=== PATIENT | female | born 1990 ===

== ENCOUNTER 2018-01-23 22:55 | Emergency (ER) | payer BC ==
[2018-01-23 23:14] VITALS: RESP 16
[2018-01-24 00:17] LABS: BASO % 0.2 % (0.0-2.0); EOS # 0.1 K/uL (0.0-0.7); EOS % 0.6 % (0.0-4.0); HEMOGLOBIN 12.2 g/dL (12.0-16.0); LYMPH # 3.6 K/uL (1.0-4.3); LYMPH % 21.5 % (20.0-40.0); MEAN CELL VOLUME 89.8 fl (81.0-99.0); MEAN CORPUSCULAR HEMOGLOBIN 29.5 pg (27.0-31.0); MEAN CORPUSCULAR HGB CONC 32.9 g/dL (33.0-37.0); MEAN PLATELET VOLUME 8.6 fl (7.2-11.7); MONO # 1.1 K/uL (0.0-0.8); MONO % 6.6 % (0.0-10.0); NEUT # 11.9 K/uL (1.8-7.0); NEUT % 71.1 % (50.0-75.0); RBC 4.13 Mil/uL (3.80-5.20); RED CELL DISTRIBUTION WIDTH 13.7 % (11.5-14.5); WHITE BLOOD COUNT 16.8 K/uL (4.8-10.8)
[2018-01-24 00:21] LABS: SQUAMOUS EPITHIAL 1 /hpf (0-5); URINE BACTERIA RARE (<OCC); URINE BILIRUBIN NEGATIVE (NEGATIVE); URINE BLOOD NEGATIVE (NEGATIVE); URINE CLARITY CLEAR (Clear); URINE COLOR STRAW (YELLOW); URINE GLUCOSE (UA) NEG (Normal); URINE HYALINE CAST 0-2 /hpf (0-2); URINE LEUKOCYTE ESTERASE NEG Leu/uL (Negative); URINE PROTEIN NEGATIVE (NEGATIVE); URINE UROBILINOGEN 0.2-1.0 mg/dL (0.2-1.0)
[2018-01-24 00:26] LABS: BLOOD UREA NITROGEN 7 mg/dl (7-17); CALCIUM 9.2 mg/dL (8.4-10.2); GFR AFRICAN-AMERICAN > 60; GFR NON-AFRICAN AMERICAN > 60
--- NOTE | 2018-01-24 00:47 | ED PDOC ---
HPI: Female Pain Time Seen by Provider: 01/23/18 23:21 Chief Complaint (Nursing): Female Genitourinary Chief Complaint (Provider): Female Genitourinary History Per: Patient History/Exam Limitations: no limitations Onset/Duration Of Symptoms: Hrs Associated Symptoms: denies: Fever, Nausea, Vomiting Additional Complaint(s): 27 years old, 11 weeks female with presents to the ED for evaluation of 2 episodes of brown vaginal spotting onset earlier today. Patient reports mild discomfort to the suprapubic area. She states she has care and has had prior US at 8 weeks which showed +IUP. Patient reports also being diagnosed with UTI 1 week ago and was put on Keflex, which she completed. Patient denies any actual vaginal bleeding, vaginal discharge, nausea/vomiting, fever, urinary symptoms, or any more spotting since onset. Has no other complaints. PMD: DR. HARRY SMART Past Medical History Reviewed: Historical Data, Nursing Documentation, Vital Signs Vital Signs: Last Vital Signs Temp 97.7 F 01/23/18 23:10 Pulse 83 01/23/18 23:10 Resp 16 01/23/18 23:10 BP 125/82 01/23/18 23:10 Pulse Ox 100 01/23/18 23:10 - Medical History PMH: No Chronic Diseases - Surgical History Surgical History: No Surg Hx - Family History Family History: States: Unknown Family Hx - Social History Current smoker - smoking cessation education provided: No Alcohol: None Drugs: Denies - Allergies Allergies/Adverse Reactions: Allergies Allergy/AdvReac Type Severity Reaction Status Date / Time No Known Allergies Allergy Verified 01/23/18 23:40 Review of Systems ROS Statement: Except As Marked, All Systems Reviewed And Found Negative Constitutional: Negative for: Fever Gastrointestinal: Negative for: Nausea, Vomiting Genitourinary Female: Negative for: Vaginal Discharge, Vaginal Bleeding Physical Exam - Physical Exam Comments: GENERAL APPEARANCE: Patient is awake, alert, oriented x 3, in mild painful distress. SKIN: Warm, dry; (-) cyanosis. EYES: (-) conjunctival pallor, (-) scleral icterus. ENMT: Mucous membranes (+) moist. NECK: (-) tenderness, (-) stiffness, (-) lymphadenopathy. CHEST AND RESPIRATORY: (-) rales, (-) rhonchi, (-) wheezes; breath sounds equal bilaterally. HEART AND CARDIOVASCULAR: (-) irregularity; (-) murmur, (-) gallop. ABDOMEN AND GI: (-) distention. Bowel sounds active; (+) mild tenderness to suprapubic area, (-) guarding, (-) rebound, (-) palpable masses, (-) CVA tenderness. EXTREMITIES: (-) deformity, (-) edema, (+) distal pulses. NEURO AND PSYCH: Mental status as above; (-) focal findings. - Laboratory Results Result Diagrams: 01/24/18 00:12 01/24/18 00:12 - ECG O2 Sat by Pulse Oximetry: 100 (RA) Pulse Ox Interpretation: Normal Medical Decision Making Medical Decision Making: Time: 2355 Initial impression: rule out UTI, consider threaten miscarriage Initial plan: --BBK Type and Screen --BMP --CBC --Urine Culture --Urinalysis Time: 29 --US not available at this time --Patient offered stay in ED for further observation and US in the AM, which can be performed once available as of 7 am --Patient, however, denies any spotting here in the ED and prefers not staying for ER observation, she is declining further observation --She states she will return to ER if spotting occurs --Labs reviewed, UA (-), beta quant 78,399, type & screen B+. Labs d/w the patient. --On re-evaluation, patient is resting comfortably in bed, in no acute distress , reports no abdominal pain, vaginal spotting or bleeding. --Patient is comfortable going home and instructed to return to ER in the morning if symptoms occur or if she changes her mind wants an US regardless --Otherwise was instructed to follow up with her OB in 1-2 days without fail. Scribe Attestation: Documented by Anastasiia Gonzalez, acting as a scribe for Rosalina Ferro PA-C. Provider Scribe Attestation: All medical record entries made by the Scribe were at my direction and personally dictated by me. I have reviewed the chart and agree that the record accurately reflects my personal performance of the history, physical exam, medical decision making, and the department course for this patient. I have also personally directed, reviewed, and agree with the discharge instructions and disposition. Disposition - Clinical Impression Clinical Impression: Vaginal spotting - Patient ED Disposition Is Patient to be Admitted: No Counseled Patient/Family Regarding: Studies Performed, Diagnosis, Need For Followup - Disposition Disposition: Routine/Home Disposition Time: 01:00 Condition: STABLE Additional Instructions: Thank you for letting us take care of you today. You were treated for vaginal spotting, 11 weeks . The emergency medical care you received today was directed at your acute symptoms. Return to the Emergency Department if your symptoms worsen, do not improve, or if you have any other problems. Please contact your OB doctor in 2 days for re-evaluation and follow up. Bring any paperwork you were given at discharge with you along with any medications you are taking to your follow up visit. Our treatment cannot replace ongoing medical care by a primary care provider (PCP) outside of the emergency department. Thank you for allowing the [facility] team to be part of your care today. 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
[2018-01-24 03:09] VITALS: BP 110/72; PULSE 69; TEMP 98.4
[2018-01-24 04:18] VITALS: O2SAT 100
== END 2018-01-24 01:32 | disposition home or self-care (01) ==
LOC: H.ER 22:55
DX: O26.859 Spotting complicating pregnancy, unspecified trimester (principal)

== ENCOUNTER 2018-01-24 16:42 | Emergency (ER) | payer BC ==
[2018-01-24 16:51] VITALS: O2SAT 100
[2018-01-24 18:18] LABS: BASO % 0.2 % (0.0-2.0); EOS # 0.1 K/uL (0.0-0.7); EOS % 0.5 % (0.0-4.0); HEMOGLOBIN 12.5 g/dL (12.0-16.0); LYMPH # 2.7 K/uL (1.0-4.3); LYMPH % 20.7 % (20.0-40.0); MEAN CORPUSCULAR HEMOGLOBIN 29.7 pg (27.0-31.0); MEAN CORPUSCULAR HGB CONC 33.3 g/dL (33.0-37.0); MEAN PLATELET VOLUME 8.5 fl (7.2-11.7); MONO # 0.8 K/uL (0.0-0.8); MONO % 6.1 % (0.0-10.0); NEUT # 9.3 K/uL (1.8-7.0); NEUT % 72.5 % (50.0-75.0); RBC 4.23 Mil/uL (3.80-5.20); RED CELL DISTRIBUTION WIDTH 13.5 % (11.5-14.5); WHITE BLOOD COUNT 12.9 K/uL (4.8-10.8)
--- NOTE | 2018-01-24 18:29 | US ---
PROCEDURE: OB Pelvic Ultrasound HISTORY: bleeding in preg LMP: 11/04/2017 COMPARISON: None available. FINDINGS: UTERUS: Gestational sac: Single intrauterine gestation. Measures 4.9 cm compatible with estimated gestational age of 10 weeks, 4 days. Yolk sac: Not visualized. pole: [place]-rump length measures 4.5 cm compatible with estimated gestational age of 11 weeks, 2 days. Heart rate: 158 bpm. age (Ultrasound estimated): 11 weeks, 0 days Jyoti-gestational hemorrhage: None. Date of delivery (Ultrasound estimated) : 08/15/2018 CERVIX: Measures 4.8 cm. Long and closed. No cervical abnormality seen. RIGHT OVARY: Measures 2.4 x 1.5 x 2.4 cm. No mass lesion. Normal flow. LEFT OVARY: Measures 3.0 x 2.3 x 3.5 cm. Cyst measuring 1.8 x 1.5 x 1 8 cm. Normal flow. FREE FLUID: None. OTHER FINDINGS: None. IMPRESSION: Single live intrauterine gestation with average ultrasound age of 11 weeks, 0 days. heart rate 158 beats per minute. Cervix long and closed.
--- NOTE | 2018-01-24 19:08 | ED PDOC ---
HPI: Female Pain Time Seen by Provider: 01/24/18 17:24 Chief Complaint (Nursing): Female Genitourinary Chief Complaint (Provider): Vaginal spotting History Per: Patient History/Exam Limitations: no limitations Onset/Duration Of Symptoms: Days (x2) Current Symptoms Are (Timing): Still Present Additional Complaint(s): 27 year old female, 11 weeks , , presents to the ED for evaluation of vaginal spotting onset yesterday night associated with mild cramping lower abdominal pain. Patient was seen here in ED yesterday night, but was discharged because she did not want to wait until 7:00 for an ultrasound. Worsening pain prompted her visit today, and she denies taking any pain medication before arrival. Additionally, patient notes she received care and that she had an ultrasound at 8 weeks that confirmed an IUP. As of two weeks ago, patient also notes she developed a UTI, which has resolved with a course of Keflex as shown by her urinalysis yesterday. Also from yesterday's results, she said her type and screen came back as B positive. Otherwise: (-) nausea, (-) vomiting, (-) urinary symptoms, (-) chest pain, (-) shortness of breath, (-) back pain. LNMP: 11/04/17 PMD: Emory German Past Medical History Reviewed: Historical Data, Nursing Documentation, Vital Signs Vital Signs: Last Vital Signs Temp 97.6 F 01/24/18 16:50 Pulse 90 01/24/18 16:50 Resp 19 01/24/18 16:50 BP 125/51 L 01/24/18 16:50 Pulse Ox 100 01/24/18 16:50 - Medical History PMH: No Chronic Diseases - Surgical History Surgical History: No Surg Hx - Family History Family History: States: Unknown Family Hx - Social History Current smoker - smoking cessation education provided: No Alcohol: None Drugs: Denies - Allergies Allergies/Adverse Reactions: Allergies Allergy/AdvReac Type Severity Reaction Status Date / Time No Known Allergies Allergy Verified 01/23/18 23:40 Review of Systems ROS Statement: Except As Marked, All Systems Reviewed And Found Negative Cardiovascular: Negative for: Chest Pain Respiratory: Negative for: Shortness of Breath Gastrointestinal: Positive for: Abdominal Pain (mild lower, described as cramping). Negative for: Nausea, Vomiting Genitourinary Female: Positive for: Vaginal Bleeding (spotting). Negative for: Dysuria, Frequency, Incontinence Musculoskeletal: Negative for: Back Pain Physical Exam - Reviewed Nursing Documentation Reviewed: Yes Vital Signs Reviewed: Yes - Physical Exam Comments: GENERAL APPEARANCE: Patient is awake, alert, oriented x 3, in no acute distress. Resting comfortably, on cell phone. SKIN: Warm, dry; (-) cyanosis. EYES: (-) conjunctival pallor, (-) scleral icterus. ENMT: Mucous membranes are moist. NECK: Supple, FROM (-) tenderness, (-) stiffness, (-) lymphadenopathy. CHEST AND RESPIRATORY: (-) rales, (-) rhonchi, (-) wheezes; breath sounds equal bilaterally. Speaking in full sentences. HEART AND CARDIOVASCULAR: (-) irregularity; (-) murmur, (-) gallop. ABDOMEN AND GI: (-) distention. Bowel sounds active x4; mild tenderness to lower abdomen. (-) guarding, (-) rebound, (-) palpable masses, (-) CVA tenderness EXTREMITIES: (-) deformity, (-) edema, (+) distal pulses. NEURO AND PSYCH: Mental status as above; (-) focal findings. Gait steady, speech clear. (-) facial asymmetry (-) aphasia - Laboratory Results Result Diagrams: 01/24/18 18:14 - ECG O2 Sat by Pulse Oximetry: 100 (RA) Pulse Ox Interpretation: Normal Medical Decision Making Medical Decision Making: Initial Impression: abdominal pain and vaginal bleeding during 1st trimester Time: 17:27 Initial Plan: --Beta-HCG, quantitative --CBC with differential --Tylenol 650mg PO --Transvag US 18:28 Transvag US FINDINGS: UTERUS: Gestational sac: Single intrauterine gestation. Measures 4.9 cm compatible with estimated gestational age of 10 weeks, 4 days. Yolk sac: Not visualized. pole: [place]-rump length measures 4.5 cm compatible with estimated gestational age of 11 weeks, 2 days. Heart rate: 158 bpm. age (Ultrasound estimated): 11 weeks, 0 days Jyoti-gestational hemorrhage: None. Date of delivery (Ultrasound estimated) : 08/15/2018 CERVIX: Measures 4.8 cm. Long and closed. No cervical abnormality seen. RIGHT OVARY: Measures 2.4 x 1.5 x 2.4 cm. No mass lesion. Normal flow. LEFT OVARY: Measures 3.0 x 2.3 x 3.5 cm. Cyst measuring 1.8 x 1.5 x 1 8 cm. Normal flow. FREE FLUID: None. OTHER FINDINGS: None. IMPRESSION: Single live intrauterine gestation with average ultrasound age of 11 weeks, 0 days. heart rate 158 beats per minute. Cervix long and closed. 192 Labs reviewed. H&H stable. On re-evaluation, patient reports improvement of symptoms. On exam, patient remains AAOx3, in no acute distress. Lungs clear to auscultation, cardiac RRR, abdomen soft, non-tender, repeat neuro exam shows no focal findings. VSS, stable for discharge. Lab/Diagnostic results d/w the patient in great detail. Diagnosis of abdominal pain in , vaginal spotting d/w the patient. Based on history, exam and diagnostic results, plan will be for outpatient follow up. Patient instructed to follow-up with pmd / referral provided / the clinic in 1- 2 days without fail. Advised to take medication as prescribed. Return to the emergency room at any time for any new or worsening symptoms. Patient states she fully agrees with and understands discharge instructions. States that she agrees with the plan and disposition. Verbalized and repeated discharge instructions and plan. I have given the patient opportunity to ask any additional questions. Scribe Attestation: Documented by Fabiola Sibley, acting as a scribe for Tyra Sapp PA-C. Provider Scribe Attestation: All medical entries made by the Scribe were at my direction and personally dictated by me. I have reviewed the chart and agree that the record accurately reflects my personal performance of the history, physical exam, medical decision making, and the department course for this patient. I have also personally directed, reviewed, and agree with the discharge instructions and disposition. Disposition - Clinical Impression Clinical Impression: Vaginal spotting, Abdominal pain affecting , First trimester - Patient ED Disposition Is Patient to be Admitted: No Counseled Patient/Family Regarding: Studies Performed, Diagnosis, Need For Followup, Rx Given - Disposition Referrals: Emory German DO [Staff Provider] - Disposition: Routine/Home Disposition Time: 19:45 Condition: STABLE Additional Instructions: FOLLOW UP WITH OBGYN IN 1-2 DAYS WITHOUT FAIL. RETURN TO ED WITH ANY NEW OR WORSENING SYMPTOMS. Instructions: Care, Bleeding With , - The Third Month, - The Fourth Month, - The Fifth Month Forms: [employer] (Cameroonian) Print Language: MAURITIAN - POA Present On Arrival: None Results - Lab Results Lab Results: 01/24/18 01/24/18 18:14 18:14 WBC 12.9 H RBC 4.23 Hgb 12.5 Hct 37.6 MCV 89.0 MCH 29.7 MCHC 33.3 RDW 13.5 Plt Count 295 MPV 8.5 Neut % (Auto) 72.5 Lymph % (Auto) 20.7 Wilcox % (Auto) 6.1 Eos % (Auto) 0.5 Baso % (Auto) 0.2 Neut # (Auto) 9.3 H Lymph # (Auto) 2.7 Wilcox # (Auto) 0.8 Eos # (Auto) 0.1 Baso # (Auto) 0.0 Beta HCG, Quant 29925.00
[2018-01-24 20:11] VITALS: BP 116/54; PULSE 84; RESP 18; TEMP 98.1
== END 2018-01-24 19:50 | disposition home or self-care (01) ==
LOC: H.ER 16:42
DX: O20.9 Hemorrhage in early pregnancy, unspecified (principal); O26.891 Other specified pregnancy related conditions, first trimester; Z3A.11 11 weeks gestation of pregnancy

== ENCOUNTER 2018-08-06 19:19 | Inpatient (IN) | payer BC ==
[2018-08-06 19:46] VITALS: BMI 29.5
[2018-08-06] MEDS ORDERED: Insulin NPH Human 100 Units/ml Inj SC ONE (20:13)
[2018-08-06 20:46] LABS: BASO % 0.2 % (0.0-2.0); EOS # 0.1 K/uL (0.0-0.7); LYMPH # 2.5 K/uL (1.0-4.3); LYMPH % 19.3 % (20.0-40.0); MEAN CELL VOLUME 82.7 fl (81.0-99.0); MEAN CORPUSCULAR HEMOGLOBIN 26.7 pg (27.0-31.0); MEAN CORPUSCULAR HGB CONC 32.3 g/dL (33.0-37.0); MEAN PLATELET VOLUME 8.5 fl (7.2-11.7); MONO # 0.8 K/uL (0.0-0.8); MONO % 6.2 % (0.0-10.0); NEUT # 9.5 K/uL (1.8-7.0); NEUT % 73.3 % (50.0-75.0); NRBC % 0.1 % (0.0-0.0); RBC 4.49 Mil/uL (3.80-5.20); RED CELL DISTRIBUTION WIDTH 15.6 % (11.5-14.5); WHITE BLOOD COUNT 12.9 K/uL (4.8-10.8)
[2018-08-07] MEDS ORDERED: Glucagon Recombinant 1 mg Inj IM PRN (03:49)
[2018-08-07] MEDS ORDERED: Dextrose 50% SYRINGE Inj (50 ml) IV PRN (03:49)
[2018-08-07] MEDS ORDERED: Insulin Lispro (humaLOG) 100 Units/ml Inj SC ONE ×3 (03:51→17:00)
--- NOTE | 2018-08-07 07:29 | OBADHP ---
Datetime: 08/07/2018 01:39 Vital Signs Provider: Reviewed; Within Normal Limits Datetime: 08/06/2018 20:26 Admit Comment, IP Provider: 27 y/o female at 39.2 wk GA w/ GDM2 admitted for induction of labor . Patient denies chest pain, headaches, SOB, n/v. She denies vaginal fluid leak/bleeding/abdominal cr amps. OB: Dr. Diaz Pmhx: GDM2 Famhx: non-contributory SurgHx: denies SocialHx: denies tobacco, etoh, recreational drug use Allergies: NKDA HomeRx: Prenatals, Insulin NPH 20 units HS Assessment and Plan: 27 y/o female at 39.2 wk GA w/ GDM2 presents to for induction of labor GBS neg, HIV neg, HBsAg neg, RPR neg Varicella, Rubella non-immune Admit patient to L_D Type and Screen CBC Cervidil 10mg VAG once Regular diet, will give one dose of Regular insulin 20 units tonight Monitor blood glucose Q4H, will start insulin drip if glucose >120 Monitor heart rate Case discussed w/ attending Mary Shah MD pgyI The patient was seen with the resident I agree with the note Pelvic Type - PN: Not Done Extremities - PN: Normal Abdomen - PN: Normal Back - PN: Normal Breast - PN: Not Done Lungs - PN: Normal Heart - PN: Normal Thyroid - PN: Normal Neurologic - PN: Normal HEENT - PN: Normal General - PN: Normal Weight - Estimated: 2972 Presentation-Admit: Vertex FHR - Baseline A Provider: 145 Membranes, Provider: Intact Contraction Comments Provider: irregular Comments, ACOG Physical Exam: U/S at bedside shows fetus in cephalic position Gestation - Est Wks by US: 39.2 IP Hx Assessment: The History has been Reviewed and is Current IP Chief Complaint: Scheduled induction of labor NICHD Variability Prov Fetus A: Moderate 6-25bpm NICHD Accel Fetus A IP Provider: 15X15 FHR Category Provider Fetus A: Category I NICHD Decel Fetus A IP Provider: None Dilatation, Provider: 0 Genitourinary Exam: Not Done DTRs - PN: Not Done IP Adm Impression: Term, intrauterine IP Admit Plan: Admit to unit; Initiate labor induction protocol
--- NOTE | 2018-08-07 07:32 | OBHP ---
Datetime: 08/07/2018 01:39 Vital Signs Provider: Reviewed; Within Normal Limits Datetime: 08/06/2018 20:26 IP Adm Impression: Term, intrauterine IP Admit Plan: Admit to unit; Initiate labor induction protocol Admit Comment, IP Provider: 27 y/o female at 39.2 wk GA w/ GDM2 admitted for induction of labor . Patient denies chest pain, headaches, SOB, n/v. She denies vaginal fluid leak/bleeding/abdominal cr amps. OB: Dr. Diaz Pmhx: GDM2 Famhx: non-contributory SurgHx: denies SocialHx: denies tobacco, etoh, recreational drug use Allergies: NKDA HomeRx: Prenatals, Insulin NPH 20 units HS Assessment and Plan: 27 y/o female at 39.2 wk GA w/ GDM2 presents to for induction of labor GBS neg, HIV neg, HBsAg neg, RPR neg Varicella, Rubella non-immune Admit patient to L_D Type and Screen CBC Cervidil 10mg VAG once Regular diet, will give one dose of Regular insulin 20 units tonight Monitor blood glucose Q4H, will start insulin drip if glucose >120 Monitor heart rate Case discussed w/ attending Mary Shah MD pgyI The patient was seen with the resident I agree with the note Pelvic Type - PN: Not Done Extremities - PN: Normal Abdomen - PN: Normal Back - PN: Normal Breast - PN: Not Done Lungs - PN: Normal Heart - PN: Normal Thyroid - PN: Normal Neurologic - PN: Normal HEENT - PN: Normal General - PN: Normal Weight - Estimated: 2972 Presentation-Admit: Vertex FHR - Baseline A Provider: 145 Membranes, Provider: Intact Contraction Comments Provider: irregular Comments, ACOG Physical Exam: U/S at bedside shows fetus in cephalic position Gestation - Est Wks by US: 39.2 IP Hx Assessment: The History has been Reviewed and is Current IP Indication for Induction: Maternal Diabetes IP Chief Complaint: Scheduled induction of labor NICHD Variability Prov Fetus A: Moderate 6-25bpm NICHD Accel Fetus A IP Provider: 15X15 FHR Category Provider Fetus A: Category I NICHD Decel Fetus A IP Provider: None Dilatation, Provider: 0 Genitourinary Exam: Not Done DTRs - PN: Not Done
[2018-08-07] MEDS ORDERED: Insulin Regular 100 units/ml SC SCH (09:30)
[2018-08-07] MEDS ORDERED: Insulin NPH Human 100 Units/ml Inj SC SCH ×2 (09:30→11:30)
[2018-08-07] MEDS ORDERED: Oxytocin 30 UNIT 30 UNITS/500 ML BAG IV ONE ×2 (09:31→22:34)
[2018-08-07] MEDS ORDERED: OXYTOCIN IV ONE (10:00)
[2018-08-07] MEDS ORDERED: OXYTOCIN IM ONE (10:00)
[2018-08-07] MEDS ORDERED: SODIUM CHLORIDE 0.45% IV ONE (10:00)
[2018-08-07] MEDS ORDERED: SODIUM CHLORIDE 0.45% IM ONE (10:00)
[2018-08-07] MEDS: Sodium Chloride 0.45% 1,000 ML IV SCH ×4 (10:26→17:16)
--- NOTE | 2018-08-07 11:24 | OBPN ---
Datetime: 08/07/2018 09:00 IP Progress Impression: Normal progression of labor IP Informed Consent Obtain: Vaginal Delivery IP Procedures: Sterile Vag Exam IP Progress Plan: Continue present management Membranes, Provider: Intact Contraction Comments Provider: Irregular contractons FHR - Baseline A Provider: 130 IP Progress Note Comment: Patient comfortable, does not want pain medcation FS = 114, was given sliding scale insulin FHR = 130 mod jason, +accels, no decels TOCO = Nati irregularly A/P 1. Patient feeling some contractions, does not want pain medication at this time. VE = 2/60/-2, wi ll continue induction with Pitocin mixed in NS 2. Patient at breakfast this morning, will cover with sliding scale insulin. Q4 hour check 3. CEFM and TOCO 4. Re-evaluate as needed Vital Signs Provider: Reviewed; Within Normal Limits NICHD Accel Fetus A IP Provider: [id number] NICHD Variability Prov Fetus A: Moderate 6-25bpm Dilatation, Provider: 2 Effacement, Provider: 60 Station, Provider: -2 NICHD Decel Fetus A IP Provider: None Datetime: 08/07/2018 01:39 IP Progress Plan Other: Insulin IP Progress Impression Other: Elevated glucose level Datetime: 08/06/2018 20:26 Gestation - Est Wks by US: 39.2 Weight - Estimated: 2972 Presentation-Admit: Vertex FHR Category Provider Fetus A: Category I
[2018-08-07] MEDS ORDERED: Fentanyl/Bupivacaine HCl 250 ML EPI ONE (14:44)
[2018-08-07] MEDS ORDERED: OXYTOCIN/0.9 % NS 20 UNIT/1,000 ML BAG IV SCH (16:45)
[2018-08-07] MEDS ORDERED: Lidocaine 1% Inj (20ml) ONE (19:22)
--- NOTE | 2018-08-07 19:43 | OBPN ---
Datetime: 08/07/2018 19:39 IP Progress Impression: Normal progression of labor IP Informed Consent Obtain: Vaginal Delivery IP Procedures: Sterile Vag Exam IP Progress Plan: Continue present management Membranes, Provider: Ruptured Contraction Comments Provider: q 4 mins FHR - Baseline A Provider: 145 IP Progress Note Comment: Patient evalauted, comfortable s/p epidural VE=9/100/0 FHR = 145 mod jason, +acccels, early decels TOCO = ctxning q 4 mins, Pitocin @ 14 FS now q 1 - last FS = 90 A/P 1. patient evaluated, progressing well - now 9cm. Continue Pitocin 2. FS q 1 hour, will cover accordingly with sliding scale 3. Comfortable with epidural 4. CEFM and TOCO Vital Signs Provider: Reviewed; Within Normal Limits NICHD Accel Fetus A IP Provider: [id number] NICHD Variability Prov Fetus A: Moderate 6-25bpm Dilatation, Provider: 9 Effacement, Provider: 100 Station, Provider: 0 NICHD Decel Fetus A IP Provider: Early
--- NOTE | 2018-08-07 22:24 | OBDS ---
MATERNAL INFORMATION Delivery Anesthesia: Epidural Provider Comments: of live female over intact perineum 6lbs 8 oz, 9/9 in IDALMIS with loose nuchal cord, followed by shoulders and rest of , mouth and nose suctioned on mother's chest, co rd clamped and cut, cord blood obtained and cord gas, placenta delivered spontaneously, fundus firm, second degree laceration repaired with Lidocaine with epinephrine and 2-0 vicryl rapide, EBL = 100mL, complications none LABOR SUMMARY EDC: 08/11/2018 00:00 No. Babies in Womb: 1 Attempted: No Labor Anesthesia: Epidural LABOR INFORMATION Reason for Induction: Maternal Diabetes Onset of Labor: 08/07/2018 14:00 Cervical Ripening Agents: Cervidil Oxytocin: Augmentation Group B Beta Strep: Negative Antibiotics # of Doses: na Antibiotics Time of Last Dose: na Steroids Given: None Reason Steroids Not Administered: Not Applicable MEMBRANES Membranes Rupture Method: Spontaneous Rupture of Membranes: 08/07/2018 14:00 Amniotic Fluid Color: Clear Amniotic Fluid Amount: Scant Amniotic Fluid Odor: Normal
[2018-08-07] MEDS ORDERED: Benzocaine/Menthol SPRAY TOP PRN (22:28)
[2018-08-07] MEDS ORDERED: Oxycodone/Acetaminophen 5/325 mg Tab PO PRN ×2 (22:28)
[2018-08-07] MEDS ORDERED: Acetaminophen-Codeine 300/30 mg Tab PO PRN (22:28)
[2018-08-08] MEDS ORDERED: Oxycodone/Acetaminophen 5/325 mg Tab PO PRN ×2 (00:43)
[2018-08-08] MEDS ORDERED: Benzocaine/Menthol SPRAY TOP PRN (00:43)
[2018-08-08 06:59] LABS: BASO % 0.2 % (0.0-2.0); EOS # 0.1 K/uL (0.0-0.7); EOS % 0.4 % (0.0-4.0); HEMOGLOBIN 10.5 g/dL (12.0-16.0); LYMPH # 2.3 K/uL (1.0-4.3); LYMPH % 14.9 % (20.0-40.0); MEAN CELL VOLUME 83.9 fl (81.0-99.0); MEAN CORPUSCULAR HEMOGLOBIN 27.2 pg (27.0-31.0); MEAN CORPUSCULAR HGB CONC 32.5 g/dL (33.0-37.0); MEAN PLATELET VOLUME 8.1 fl (7.2-11.7); MONO % 6.4 % (0.0-10.0); NEUT # 12.2 K/uL (1.8-7.0); NEUT % 78.1 % (50.0-75.0); NRBC % 0.1 % (0.0-0.0); RBC 3.86 Mil/uL (3.80-5.20); RED CELL DISTRIBUTION WIDTH 15.5 % (11.5-14.5); WHITE BLOOD COUNT 15.6 K/uL (4.8-10.8)
--- NOTE | 2018-08-08 07:25 | OBPPN ---
Datetime: 08/08/2018 07:21 PP Pain Prov: Within normal limits PP Abdomen/Uterus Prov: Normal PP Lochia Prov: Normal PP Progress Prov: Normal PP Impression Prov: Normal progression PP Plan Prov: Continue present management PP Progress Note Prov: PPD 1 s/p , doing well, breast feeding Continue current care Vital Signs Provider PP: Reviewed
[2018-08-08] MEDS: Multivitamin With Minerals Tab PO SCH (08:11)
[2018-08-08] MEDS ORDERED: Multivitamin With Minerals Tab PO SCH (09:00)
[2018-08-09] MEDS ORDERED: Measles, Mumps, and Rubella 0.5 ML VIAL SC ONE (09:00)
[2018-08-09] MEDS: Multivitamin With Minerals Tab PO SCH (09:06)
--- NOTE | 2018-08-09 11:35 | OBDCSUM ---
Datetime: 08/09/2018 11:34 Discharged to, Provider: Home Follow up at, Provider: [facility] Disch Instr Activity: Normal activity Disch Instr Diet: Regular Discharge Instructions, Provider: Routine instructions given Discharge Diagnosis, Provider: Term Delivered Follow up in weeks, Provider: 6w Disch Referrals: None Contraception discussed, Prov: Yes
--- NOTE | 2018-08-09 11:35 | OBPPN ---
Datetime: 08/09/2018 11:32 PP Pain Prov: Within normal limits PP Nausea Prov: Denies PP Flatus Prov: Yes PP Breasts Prov: Normal PP Heart Prov: Normal PP Lungs Prov: Normal PP Abdomen/Uterus Prov: Normal PP Lochia Prov: Normal PP Vulva/Perineum Prov: Normal PP CVA Tenderness Prov: Normal PP Extremities Prov: Normal PP Impression Prov: Normal progression PP Plan Prov: Discharge PP Progress Note Prov: She feels fine; ready to go home. A: S/P day 2 Rubella NonImmune PLAN: D/C home and followup in 6w - Rubella vacccine prior to discharge IP PP Procedures: Rubella Vital Signs Provider PP: Reviewed; Within Normal Limits
[2018-08-09] MEDS ORDERED: [UNRECOGNIZED DRUG - REMARK] SC ONE (11:36)
--- NOTE | 2018-08-09 11:41 | OBPPN ---
Datetime: 08/09/2018 11:38 PP Progress Note Prov: VZV NonImmune - VZV vaccine prior to discharge
[2018-08-09 19:26] VITALS: BP 106/70; PULSE 74; RESP 20; TEMP 98.2; O2SAT 100
== END 2018-08-09 14:49 | disposition home or self-care (01) | DRG 807 ==
LOC: H.L&D 20:03 → H.OB/GYN 08-08 00:21
PROVIDERS: ADMIT Obstetrics & Gynecology Gynecology; ATTEND Obstetrics & Gynecology Gynecology
PROC: 4A1HXCZ Monitoring of Products of Conception, Cardiac Rate, External Approach (ICD-10-PCS; 2018-08-06)
PROC: 10E0XZZ Delivery of Products of Conception, External Approach (ICD-10-PCS; principal; 2018-08-07)
PROC: 0KQM0ZZ Repair Perineum Muscle, Open Approach (ICD-10-PCS; 2018-08-07)
DX: O69.81X0 Labor and delivery complicated by cord around neck, without compression, not applicable or unspecified (principal); Z37.0 Single live birth; O24.424 Gestational diabetes mellitus in childbirth, insulin controlled; Z3A.39 39 weeks gestation of pregnancy; Z79.4 Long term (current) use of insulin; O70.1 Second degree perineal laceration during delivery

== ENCOUNTER 2018-09-04 21:46 | Emergency (ER) | payer BC ==
[2018-09-04 21:46] VITALS: BMI 29.5
[2018-09-04 22:01] VITALS: BP 110/61; PULSE 86; RESP 16; TEMP 98.7; O2SAT 99
[2018-09-04] MEDS ORDERED: Tmp-Smz 800 mg-160 mg DS Tab PO STA (22:40)
[2018-09-04] MEDS ORDERED: Naproxen 500 MG TAB PO ONE ×2 (22:40→22:46)
--- NOTE | 2018-09-04 22:42 | ED PDOC ---
HPI: Skin/Bite Injury Time Seen by Provider: 09/04/18 22:04 Chief Complaint (Nursing): Abnormal Skin Integrity History Per: Patient Additional Complaint(s): Pt. states for the past 5 days she's had R thigh pain, swelling, and redness. Denies fever, chills, discharge. Took Paracetamol this morning at 0915 without relief of pain. Past Medical History Reviewed: Historical Data, Nursing Documentation, Vital Signs Vital Signs: Last Vital Signs Temp 98.7 F 09/04/18 21:59 Pulse 86 09/04/18 21:59 Resp 16 09/04/18 21:59 BP 110/61 09/04/18 21:59 Pulse Ox 99 09/04/18 21:59 - Medical History PMH: Denies: Depression, Diabetes, HTN - Family History Family History: States: No Known Family Hx - Home Medications Home Medications: Ambulatory Orders Medication Instructions Recorded Cephalexin [cephalexin] 500 mg PO Q6 #27 cap 09/04/18 RX: Naproxen [Naprosyn] 500 mg PO BID PRN #10 tab 09/04/18 Sulfamethoxazole/Trimethoprim 2 tab PO BID #26 tab 09/04/18 [Bactrim DS 800 mg-160 mg] - Allergies Allergies/Adverse Reactions: Allergies Allergy/AdvReac Type Severity Reaction Status Date / Time No Known Allergies Allergy Verified 09/04/18 21:56 Review of Systems ROS Statement: Except As Marked, All Systems Reviewed And Found Negative Physical Exam - Physical Exam Appears: Positive for: Well, Non-toxic, No Acute Distress Skin: Positive for: Normal Color, Warm. Negative for: Rash Eye Exam: Positive for: Normal appearance Extremity: Positive for: Other (R medial thigh with indurated erythematous mass approximately 3cm x 3cm without discharge or fluctuance or streaking) Neurologic/Psych: Positive for: Alert, Oriented (x3) - ECG O2 Sat by Pulse Oximetry: 99 - Progress ED Course And Treament: Under sterile conditions mass was aspirated but no purulent material obtained. DSD applied. Pt. advised to f/u with PMD or return to ED in 48 hours for wound check but is to return to ED immediately if symptoms worsen. Disposition - Clinical Impression Clinical Impression: Cellulitis, Abscess - Patient ED Disposition Is Patient to be Admitted: No - Disposition Referrals: [facility] [Outside] Disposition: Routine/Home Disposition Time: 22:42 Condition: STABLE Additional Instructions: FOLLOW UP WITH YOUR PMD IN 2 DAYS OR RETURN TO ED IMMEDIATELY IF SYMPTOMS WORSEN ALLA RAM, thank you for letting us take care of you today. Your provider was Paul Goncalves MD and you were treated for POSS RT LEG BOIL. The emergency medical care you received today was directed at your acute symptoms. If you were prescribed any medication, please fill it and take as directed. It may take several days for your symptoms to resolve. Return to the Emergency Department if your symptoms worsen, do not improve, or if you have any other problems. Please contact your doctor or call one of the physicians/clinics you have been referred to that are listed on the Patient Visit Information form that is included in your discharge packet. Bring any paperwork you were given at discharge with you along with any medications you are taking to your follow up visit. Our treatment cannot replace ongoing medical care by a primary care provider outside of the emergency department. Thank you for allowing the [facility] team to be part of your care today. If you had an X-Ray or CT scan: A Radiologist will review the ED reading if any change in treatment is needed we will contact you. If you had a blood, urine, or wound culture: It will take several days for the results, if any change in treatment is needed we will contact you. If you had an STI test: It will take 48 hours for the results. Please call after 1 week if you have not heard back. Prescriptions: Cephalexin [cephalexin] 500 mg PO Q6 #27 cap RX: Naproxen [Naprosyn] 500 mg PO BID PRN #10 tab PRN Reason: Pain Sulfamethoxazole/Trimethoprim [Bactrim DS 800 mg-160 mg] 2 tab PO BID #26 tab Instructions: Boil (DC), Cellulitis (Skin Infection), Adult (DC) Forms: crossvertise (Czech) Print Language: [id number]
[2018-09-04] MEDS ORDERED: Tmp-Smz 800 mg-160 mg DS Tab ONE (22:46)
== END 2018-09-04 22:52 | disposition home or self-care (01) ==
LOC: H.ER 21:46
DX: L03.115 Cellulitis of right lower limb (principal)